=== PATIENT | female | born 1960 | race Caucasian/White ===

== ENCOUNTER 2018-01-31 19:04 | Emergency (ER) | payer MEDICARE ==
[~2018-01-31] VITALS: Ht 160 cm; Wt 61.0 kg
[~2018-01-31 19:04] MED LIST: CLIN1CAP5 PO; DIFL150T PO
[2018-01-31 19:12] VITALS: BP 137/113; PULSE 105; RESP 22; TEMP 98.8; O2SAT 95
[2018-01-31] MEDS ORDERED: ONDANSETRON HCL 4 MG/2 ML VIAL IV ONE (19:45)
[2018-01-31] MEDS ORDERED: MORPHINE SULFATE 4 MG/ML INJ IV PUSH ONE (19:45)
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
[2018-01-31 20:40] LABS: AUTOMATED NEUTROPHIL # 3.1 TH/MM3 (1.8-7.7); BASOPHIL % 0.6 % (0.0-2.0); EOSINOPHIL # 0.2 TH/MM3 (0-0.4); EOSINOPHIL % 2.7 % (0.0-4.0); HEMATOCRIT 44.9 % (35.0-46.0); HEMOGLOBIN 15.3 GM/DL (11.6-15.3); LYMPH % 44.1 % (9.0-44.0); MEAN CELL VOLUME 94.2 FL (80.0-100.0); MEAN CORPUSCULAR HEMOGLOBIN 32.1 PG (27.0-34.0); MEAN CORPUSCULAR HGB CONC 34.1 % (32.0-36.0); MONO % 7.1 % (0.0-8.0); MONOCYTE # 0.5 TH/MM3 (0-0.9); NEUT % 45.5 % (16.0-70.0); PLATELET COUNT 340 TH/MM3 (150-450); RED BLOOD COUNT 4.77 MIL/MM3 (4.00-5.30); WHITE BLOOD COUNT 6.8 TH/MM3 (4.0-11.0)
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
[2018-01-31 21:03] LABS: BICARBONATE 23.2 MEQ/L (21.0-32.0); CALCIUM 9.2 MG/DL (8.5-10.1); CREATININE 1.03 MG/DL (0.50-1.00)
[2018-01-31] MEDS ORDERED: TYLETAB34 PO (23:31)
== END 2018-01-31 23:46 | disposition home or self-care (01) ==
LOC: NEPD 19:04
DX: S09.90XA Unspecified injury of head, initial encounter (principal); S49.91XA Unspecified injury of right shoulder and upper arm, initial encounter; F10.129 Alcohol abuse with intoxication, unspecified; V86.99XA Unspecified occupant of other special all-terrain or other off-road motor vehicle injured in nontraffic accident, initial encounter; Y90.7 Blood alcohol level of 200-239 mg/100 ml
CPT/HCPCS: 70450; 72125; 73030; 73060; 73090; 80048; 80307; 85025; 96374; 96375; 99285; J2270; J2405